=== PATIENT | male | born 1980 | race Caucasian/White ===

== ENCOUNTER 2016-10-11 19:31 | Emergency (ER) | payer MEDICAID, OTHER ==
[~2016-10-11] VITALS: Ht 182.9 cm; Wt 82.5 kg
[~2016-10-11 19:31] MED LIST: HYDR-3498 PO; NAPR-260 PO
[2016-10-11 19:40] VITALS: Ht 182.9 cm; Wt 82.5 kg
[2016-10-11] MEDS ORDERED: LIDOCAINE 1% (MDV) 20 ML INJ INJ STA (21:14)
[2016-10-11] MEDS ORDERED: IBUPROFEN 600 MG TAB PO ONE (21:30)
[2016-10-11] MEDS ORDERED: DIPHTH/TET/ACEL PERTUSS (ADULT) 0.5 ML VIAL IM ONE (21:30)
--- NOTE | 2016-10-12 02:20 | ERD ---
ER Documentation Chief Complaint Date/Time DATE: 10/12/16 TIME: 02:16 Chief Complaint laceration 2nd/3rd fingers with metal wires about 1 hour ago HPI 36 yo male comes in with a right 3rd digit laceration from a metal wire that occurred about 2-3 hours ago. Patient was moving a metal wire, and causes a laceration to the proximal phalanx of the right third digit, patient states that he is right-hand dominant. Pain is localized to the digit, achy, mild to moderate. He denies any weakness, paresthesias. Patient does not recall his last tetanus shot. ROS All systems reviewed and are negative except as per history of present illness. Medications Home Meds Active Scripts Naproxen* (Naprosyn*) 500 Mg Tablet, 500 MG PO BID Y for PAIN AND/OR INFLAMMATION, #20 TAB Prov:SATNAM SINGLETARY DO 01/06/15 Hydrocodone Bit-Acetaminophen* ([place]*) 5-325 Mg Tab, 1 TAB PO Q6 Y for PAIN, # 7 TAB Prov:SATNAM SINGLETARY DO 01/06/15 Allergies Allergies: Coded Allergies: No Known Allergy (Unverified , 10/11/16) PMhx/Soc Medical and Surgical Hx: pt denies Medical Hx, pt denies Surgical Hx Hx Alcohol Use: No (occasional) Hx Substance Use: No (former marijuana) Hx Tobacco Use: No Smoking Status: Never smoker Physical Exam Vitals Vital Signs Date Time Temp Pulse Resp B/P Pulse Ox O2 Delivery O2 Flow Rate FiO2 10/11/16 19:40 98.6 70 20 136/79 98 Physical Exam General: Well-developed, well-nourished. The patient appears in no acute distress. HEENT: Head is normocephalic, atraumatic. No scleral icterus. Neck: Supple. Nontender. Lungs: Clear to auscultation. Normal air movement. Heart: Regular rate and rhythm. S1 and S2 are normal. No murmurs, gallops, or rubs. Abdomen: Nondistended. Extremities: There is a 2 cm linear laceration at the dorsal aspect of the proximal phalanx of the right third digit. There is subcutaneous tissue visible however there is no tendon or bone visible. There is no foreign body or active bleeding. He has full range of motion flexion extension at DIP, PIP and MCP joint of the right third digit. Capillary refill less than 2 seconds. There is an overlying abrasion of the superficial the volar aspect of the same digit. Neurologic: Alert and oriented 3. No focal deficits. Normal speech and gait. Skin: Normal turgor. No rash or lesions. Results 24 hrs Current Medications Medications (Trade) Dose Ordered Sig/Brianna Route PRN Reason Start Time Stop Time Status Last Admin Dose Admin Diphtheria/ Tetanus/Acell Pertussis (Adacel) 0.5 ml ONCE ONCE IM 10/11/16 21:30 10/11/16 21:31 DC 10/11/16 21:27 Lidocaine (Xylocaine 1% (Mdv) 20 ml) 20 ml ONCE STAT INJ 10/11/16 21:14 10/11/16 21:16 DC Ibuprofen (Motrin) 600 mg ONCE ONCE PO 10/11/16 21:30 10/11/16 21:31 DC 10/11/16 21:26 Procedures/MDM Laceration Repair by me: Patient was verbally consented. Anesthesia: 1% lidocaine locally, approximately 3 cc were used to do a digital block. The local anesthetic effect achieved. Location: Right third digit Tendon/Joint/Nerves: No injury Foreign body: None detected after copious irrigation and exploration Technique: Simple Interrupted Sutures 5 using 4-0 Ethilon Complexity: No subcutaneous sutures/mucosal repair/ edge excision Post Closure Length: 2 cm Patient's bleeding was easily controlled in the department and there is no indication of anemia. No evidence of compartment syndrome, neurologic injury, vascular injury, open joint, tendon laceration, or foreign body. Patient is appropriate for outpatient follow up. 48 hour wound check. Scar minimization instructions given. Indications: Patient was given a Tdap update. Motrin 600 mg by mouth was given for pain. MDM: 36-year-old male comes emergency department with a laceration to right proximal phalanx dorsal aspect from metal wire. Laceration was closed without any complications. I do not suspect any fracture at this time given the superficial wound, as well as the mechanism of injury as there is no crush injury. There is no active bleeding, no tendon injury, no neurovascular compromise to the finger. Departure Diagnosis: Primary Impression: Laceration Condition: Good Patient Instructions: Laceration, Hand Additional Instructions: Wound check in 2 days. Suture removal in 10 days. Return to the ER sooner for any worsening or new symptoms. MARION HARRISON PA-C October 12, 2016 02:20
== END 2016-10-11 22:30 | disposition home or self-care (01) ==
LOC: FTE 19:31
DX: S61.212A Laceration without foreign body of right middle finger without damage to nail, initial encounter (principal); W26.8XXA Contact with other sharp object(s), not elsewhere classified, initial encounter; Y92.9 Unspecified place or not applicable; Z23 Encounter for immunization
CPT/HCPCS: 12001; 90471; 90715; Z7502; Z7610

== ENCOUNTER 2017-02-24 01:04 | Emergency (ER) | payer SELFPAY ==
[~2017-02-24] VITALS: Ht 182.9 cm; Wt 87.5 kg
[2017-02-24 01:07] VITALS: Ht 182.9 cm; Wt 87.5 kg
[2017-02-24] MEDS ORDERED: IPRATROPIUM (NEB) 0.5 MG/2.5 ML AMP NEB STA (01:57)
[2017-02-24] MEDS ORDERED: ALBUTEROL 0.083% (NEB) 2.5 MG/3 ML AMP NEB STA (01:57)
--- NOTE | 2017-02-24 02:03 | ERD ---
ER Documentation Chief Complaint Date/Time DATE: 02/24/17 TIME: 02:01 Chief Complaint Pt reports he was cleaning with Ajax and SOB after HPI 36-year-old male presents to emergency department for complaints of shortness of breath after inhalation of Ajax barrel cleaner, patient was cleaning the tub with the barrel cleaner, he started to shower afterwards, created a mist, inhaled the barrel cleaner. Patient denies complaining of shortness of breath and left-sided chest pain sharp pain,. Patient denies any numbness or tingling. She denies any dyspnea on exertion or lying down. Patient did not take any medications to help with symptoms. ROS All systems reviewed and are negative except as per history of present illness. Medications Home Meds Active Scripts Naproxen* (Naprosyn*) 500 Mg Tablet, 500 MG PO BID Y for PAIN AND/OR INFLAMMATION, #20 TAB Prov:SATNAM SINGLETARY DO 01/06/15 Hydrocodone Bit-Acetaminophen* ([place]em[place]*) 5-325 Mg Tab, 1 TAB PO Q6 Y for PAIN, # 7 TAB Prov:SATNAM SINGLETARY DO 01/06/15 Allergies Allergies: Coded Allergies: No Known Allergy (Unverified , 10/11/16) PMhx/Soc Medical and Surgical Hx: pt denies Medical Hx, pt denies Surgical Hx Hx Alcohol Use: No Hx Substance Use: No Hx Tobacco Use: No Smoking Status: Never smoker FmHx Family History: No coronary disease, No diabetes, No other Physical Exam Vitals Vital Signs Date Time Temp Pulse Resp B/P Pulse Ox O2 Delivery O2 Flow Rate FiO2 02/24/17 02:17 79 20 98 21 02/24/17 01:07 97.8 61 18 135/92 100 Physical Exam GENERAL: The patient is well developed and appropriate for usual state of health, in no apparent distress. CHEST: Noted diminished breath sounds in the left side, and some wheezes noted. There are no rales, or rhonchi. HEART: Regular rate and rhythm. No murmurs, clicks, rubs or gallops. No S3 or S4. ABDOMEN: Soft, nontender and nondistended. Good bowel sounds. No rebound or guarding. No gross peritonitis. No gross organomegaly or masses. No Seymour sign or McBurney point tenderness. BACK: No midline or flank tenderness. EXTREMITIES: Equal pulses bilaterally. There is no peripheral clubbing, cyanosis or edema. No focal swelling or erythema. Full range of motion. Grossly neurovascularly intact. NEURO: Alert and oriented. Cranial nerves 2-12 intact. Motor strength in all 4 extremities with 5/5 strength. Sensation grossly intact. Normal speech and gait. SKIN: There is no apparent rash or petechia. The skin is warm and dry. HEMATOLOGIC AND LYMPHATIC: There is no evidence of excessive bruising or lymphedema. No gross cervical, axillary, or inguinal lymphadenopathy. Results 24 hrs Current Medications Medications (Trade) Dose Ordered Sig/Brianna Route PRN Reason Start Time Stop Time Status Last Admin Dose Admin Albuterol (Proventil 0.083% (Neb)) 5 mg ONCE STAT NEB 02/24/17 01:57 02/24/17 01:59 DC 02/24/17 02:16 Ipratropium [place] (Atrovent 0.02% (Neb)) 0.5 mg ONCE STAT NEB 02/24/17 01:57 02/24/17 01:59 DC 02/24/17 02:16 Breathing treatment of albuterol and Atrovent was given here in emergency department, after treatment, patient's lungs sounds are clear and patient's oxygenation is better. Patient verbalized feeling much better. EKG was done, read by me and is normal sinus rhythm at a rate of 55, normal axis , there is no ST changes or changes in the EKG that indicates any cardiac emergencies at this time. Patient's EKG was also reviewed by Dr. Ro. Impression: no acute findings on EKG PROCEDURE: Chest. CLINICAL INDICATION: Shortness of breath. TECHNIQUE: 2 frontal views of the chest were obtained. COMPARISON: None. FINDINGS: The cardiac silhouette is within normal limits. The aortic arch is unremarkable. There is no focal consolidation, vascular congestion or pleural effusion. There is no pneumothorax. IMPRESSION: No evidence for active cardiopulmonary disease. .Garland Espana MD, MD Date Time Electronically viewed and signed by .Garland Espana MD, MD on 02/24/2017 03:26 .T/ CC: HILDA BINGHAM NP Procedures/MDM Medical Decision Making: Patient symptoms are most likely consistent with irritation reactive airway disease most likely caused by inhaling chemical. There is low suspicion for Pneumonia at this time since patients lungs sounds are clear, patient O2 saturation is normal and patient doesnt show any respiratory distress. Patients chest xray doesnt show infiltrates or any other cardiopulmonary emergencies at this time. There is low suspicion for other cardiopulmonary emergencies at this time such as CHF, Pulmonary Embolism, Pneumothorax, Aortic Aneurysm or any other cardiopulmonary emergencies at this time. There is low suspicion for sepsis. Patient appears well and is hemodynamically stable. EKG normal, does not show any cardiopulmonary emergencies at this time. Disposition: Home. Condition: Stable Prescriptions: Albuterol, tramadol Instructions: Patient is advised to take medications as prescribed. Patient is advised to rest. Patient advised to increase fluid intake, do humidifier at home and if possible, do salt water gargles. Patient is advised that if symptoms are worse, shortness of breath, uncontrolled fever, stridor, vomiting, worst signs and symptoms to return to emergency department immediately. Otherwise, patient is advised to follow up with primary doctor in 5-7 days. Disclaimer: Inadvertent spelling and grammatical errors are likely due to EHR/ dictation software use and do not reflect on the overall quality of patient care. Also, please note that the electronic time recorded on this note does not necessarily reflect the actual time of the patient encounter. Departure Diagnosis: Primary Impression: Chemical exposure Additional Impression: Wheezing Condition: Stable Patient Instructions: Chemical Inhalation Additional Instructions: : Patient is advised to take medications as prescribed. Patient is advised to rest. Patient advised to increase fluid intake, do humidifier at home and if possible, do salt water gargles. Patient is advised that if symptoms are worse, shortness of breath, uncontrolled fever, stridor, vomiting, worst signs and symptoms to return to emergency department immediately. Otherwise, patient is advised to follow up with primary doctor in 5-7 days. HILDA BINGHAM NP Feb 24, 2017 02:03
--- NOTE | 2017-02-24 03:26 | RADRPT ---
PROCEDURE: Chest. CLINICAL INDICATION: Shortness of breath. TECHNIQUE: 2 frontal views of the chest were obtained. COMPARISON: None. FINDINGS: The cardiac silhouette is within normal limits. The aortic arch is unremarkable. There is no focal consolidation, vascular congestion or pleural effusion. There is no pneumothorax. IMPRESSION: No evidence for active cardiopulmonary disease. .Garland Espana MD, MD Date Time Electronically viewed and signed by .Garland Espana MD, on 02/24/2017 03:26 .T/
[2017-02-24] MEDS ORDERED: TRAM50TA2 PO (03:54)
[2017-02-24] MEDS ORDERED: ALBU8.5H3 INH (03:54)
[2017-02-24 04:21] VITALS: BP 130/82; PULSE 60; RESP 18; TEMP 97.5
== END 2017-02-24 04:20 | disposition home or self-care (01) ==
LOC: FTE 01:04
DX: T65.91XA Toxic effect of unspecified substance, accidental (unintentional), initial encounter (principal); R06.2 Wheezing
CPT/HCPCS: 71010; 93005; 94664